=== PATIENT | female | born 1980 | race Caucasian/White ===

== ENCOUNTER 2017-03-16 12:36 | Emergency (ER) | payer SELFPAY ==
[~2017-03-16] VITALS: Ht 165.1 cm; Wt 76.0 kg
[2017-03-16 12:58] VITALS: Ht 165.1 cm; Wt 76.0 kg
--- NOTE | 2017-03-16 13:19 | ERD ---
ER Documentation Chief Complaint Date/Time DATE: 03/16/17 TIME: 13:09 Chief Complaint face tingling started today; no facial droop and no slurred speech HPI 36-year-old female who presented emergency department with a complaint of facial tingling that started around 10 AM today. Stated that she is in a lot of stress at work and also anxious. Also added that she did not have much sleep for the past few days due to her work schedule. Denies headache, head trauma, dizziness, blurry vision, changes in vision, throat pain, difficulty swallowing, neck pain, neck stiffness, shoulder pain, chest pain, back pain, abdominal pain, nausea, vomiting, constipation, diarrhea , urinary symptoms, loss of bowel and bladder control, difficulty walking, fever , chills. No known drug allergies. No past medical history. Surgical history of bilateral breast implant, liposuction. Medication: Denies taking any prescription medications at home. 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 LMP: Stated it was 4 weeks ago. A1. ROS All systems reviewed and are negative except as per history of present illness. Physical Exam Vitals Vital Signs Date Time Temp Pulse Resp B/P Pulse Ox O2 Delivery O2 Flow Rate FiO2 03/16/17 12:58 97.2 80 16 122/81 99 Physical Exam Const: [] Head: Atraumatic Eyes: Normal Conjunctiva. No pain in eye movement. Extraocular movement of her eyes within normal limits. ENT: Normal External Ears, Nose and Mouth. Neck: Full range of motion..~ No meningismus. Resp: Clear to auscultation bilaterally Cardio: Regular rate and rhythm, no murmurs Abd: Soft, non tender, non distended. Normal bowel sounds Skin: No petechiae or rashes Back: No midline or flank tenderness Ext: No cyanosis, or edema Neur: Awake and alert. Alert and oriented 4. No facial droop. Able to control tongue movement. Lung sounds are clear to auscultation. Cranial nerves II through XII are intact. Romberg test is negative. Psych: Normal Mood and Affect Procedures/MDM 36-year-old female who presented emergency department with a complaint of facial tingling that started around 10 AM today. Stated that she is in a lot of stress at work and also anxious. Also added that she did not have much sleep for the past few days due to her work schedule. Denies headache, head trauma, dizziness, blurry vision, changes in vision, throat pain, difficulty swallowing, neck pain, neck stiffness, shoulder pain, chest pain, back pain, abdominal pain, nausea, vomiting, constipation, diarrhea , urinary symptoms, loss of bowel and bladder control, difficulty walking, fever , chills. No known drug allergies. No past medical history. Surgical history of bilateral breast implant, liposuction. Medication: Denies taking any prescription medications at home. 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 LMP: Stated it was 4 weeks ago. A1. Physical exam: Alert and oriented 4. No facial droop. Able to control tongue movement. Lung sounds are clear to auscultation. Cranial nerves II through XII are intact. Romberg test is negative. Disease process was explained to the patient. She verbalized understanding and agreed with the diagnostic test, treatment, plan of care, follow-up care. EKG: Reevaluation: Cranial nerves II through XII intact. Romberg test negative. Differential diagnosis: Stroke versus Barragan's palsy versus paresthesias versus anxiety Final diagnosis: Anxiety Prescription: Hydroxyzine. Ativan. Follow-up with primary care physician the next 24-48 hours. Come back to emergency department for any new symptoms or any worsening of symptoms. All questions and concerns are answered. Patient verbalized understanding and agreed with the plan of care. Hemodynamically stable on discharge. Departure Diagnosis: Primary Impression: Anxiety Condition: Stable Additional Instructions: Follow-up with primary care physician the next 24-48 hours. Come back to emergency department for any new symptoms or any worsening of symptoms. All questions and concerns are answered. Patient verbalized understanding and agreed with the plan of care. ARIEL JERRY Mar 16, 2017 13:19
[2017-03-16] MEDS ORDERED: HYDR-3010 PO (13:24)
[2017-03-16] MEDS ORDERED: LORA-441 PO (13:26)
== END 2017-03-16 13:50 | disposition left against medical advice (07) ==
LOC: FTE 12:36
DX: F41.9 Anxiety disorder, unspecified (principal); R07.9 Chest pain, unspecified
CPT/HCPCS: 93005

== ENCOUNTER 2017-07-25 13:48 | Emergency (ER) | END 2017-07-25 14:13 | disposition home or self-care (01) ==